=== PATIENT | female | born 1995 | race Caucasian/White ===

== ENCOUNTER 2016-06-02 01:11 | Emergency (ER) | payer OTHER ==
[~2016-06-02] VITALS: Ht 157.5 cm; Wt 89.8 kg
[~2016-06-02 01:11] MED LIST: FERROUS SULFAT325 M1 PO; FOLATE1 MG PO; PRENATAL VITAMI1 T10 PO; PRENATAL1 TA1 PO
[2016-06-02 01:20] VITALS: BP 135/82
--- NOTE | 2016-06-02 01:31 | NUR ---
PT TAKEN TO BED 5
--- NOTE | 2016-06-02 01:32 | NUR ---
PATIENT PRESENTS TO ED WITH LOWER BACK AND LOWER AB PAIN X 1 DAY . PT DENIES V/D; SKIN IS PINK/WARM/DRY; AAOX4 WITH EVEN AND STEADY GAIT; LUNGS CLEAR BL; HR EVEN AND REGULAR; PT DENIES ANY FEVER, CP, SOB, OR COUGH AT THIS TIME; PATIENT STATES PAIN OF 5/10 AT THIS TIME; VSS; PATIENT POSITIONED FOR COMFORT; HOB ELEVATED; BEDRAILS UP X2; BED DOWN. ER MD MADE AWARE OF PT STATUS.
--- NOTE | 2016-06-02 01:35 | NUR ---
Dr. Mills evaluating patient at bedside.
[2016-06-02] MEDS ORDERED: ACETAMINOPHEN EXTRA STRENGTH 500 MG TAB PO ONE (01:40)
[2016-06-02] MEDS ORDERED: ONDANSETRON 4 MG ODT PO ONE (02:30)
--- NOTE | 2016-06-02 02:40 | NUR ---
Lashawn whatley in ED - 06/02/16 at 0257 by PAZ GAVE REPORT TO AMADEO AT [facility], TRANSFER OF CARE. [facility] WILL PICKUP PT AND BRING HER BACK TO [facility] [place] WITHIN THE HOUR
--- NOTE | 2016-06-02 03:21 | NUR ---
PT MOVED TO OF
[2016-06-02 04:00] VITALS: BP 135/82
[2016-09-03] MEDS ORDERED: HUMULIN N100 U/M1 SC ×2 (23:27)
[2016-09-03] MEDS ORDERED: HUMULIN R U-100 U/ML IJ ×2 (23:27)
== END 2016-06-02 04:01 | disposition home or self-care (01) ==
LOC: MED 01:11
DX: O20.0 Threatened abortion (principal); O24.911 Unspecified diabetes mellitus in pregnancy, first trimester; Z3A.10 10 weeks gestation of pregnancy
CPT/HCPCS: 36415; 76801; 81001; 84702; 86900; 86901; 99285; Q0092; S0119

== ENCOUNTER 2016-06-05 00:59 | Emergency (ER) | payer OTHER ==
[~2016-06-05] VITALS: Ht 157.5 cm; Wt 89.8 kg
[2016-06-05 01:16] VITALS: BP 120/87
--- NOTE | 2016-06-05 03:05 | NUR ---
PATIENT TO BED 7.
--- NOTE | 2016-06-05 03:21 | NUR ---
21Y/F PT PRESENTS TO ED WITH C/O HIVES SINCE 1999 TODAY. DENIES PAIN AND N/V/D AT THIS TIME. NO MED HX. IUP 11 WKS; SKIN IS PINK/WARM/DRY; AAOX4 WITH EVEN AND STEADY GAIT; LUNGS CLEAR BL; HR EVEN AND REGULAR; PT DENIES ANY FEVER, CP, SOB, OR COUGH AT THIS TIME; PATIENT STATES PAIN OF 0/10 AT THIS TIME; VSS; PATIENT POSITIONED FOR COMFORT; HOB ELEVATED; BEDRAILS UP X2; BED DOWN. ER MD MADE AWARE OF PT STATUS.
--- NOTE | 2016-06-05 03:57 | NUR ---
Patient being evaluated by physician at bedside.
--- NOTE | 2016-06-05 04:04 | NUR ---
Patient discharged with v/s stable. Written and verbal after care instructions given and explained. Patient alert, oriented and verbalized understanding of instructions. Ambulatory with steady gait. All questions addressed prior to discharge. ID band removed. Patient advised to follow up with PMD. Rx of BENEDRYL ALLERGY given. Patient educated on indication of medication including possible reaction and side effects. Opportunity to ask questions provided and answered.
[2016-06-05 04:05] VITALS: BP 116/79
[2016-09-03] MEDS ORDERED: HUMULIN R U-100 U/ML IJ ×2 (23:27)
[2016-09-03] MEDS ORDERED: HUMULIN N100 U/M1 SC ×2 (23:27)
== END 2016-06-05 04:04 | disposition home or self-care (01) ==
LOC: MED 00:59
DX: O26.891 Other specified pregnancy related conditions, first trimester (principal); O24.911 Unspecified diabetes mellitus in pregnancy, first trimester; L50.9 Urticaria, unspecified

== ENCOUNTER 2016-09-03 22:00 | Observation (INO) | payer OTHER ==
[~2016-09-03] VITALS: Ht 157.5 cm; Wt 90.7 kg
[~2016-09-03 22:00] MED LIST changes: +FERR-193 PO; -FERROUS SULFAT325 M1 PO; -FOLATE1 MG PO; +FOLI1TAB19 PO; +PREN-385 PO; -PRENATAL VITAMI1 T10 PO; -PRENATAL1 TA1 PO
[2016-09-03] MEDS ORDERED: INSU100S10 SC ×2 (23:27)
[2016-09-03] MEDS ORDERED: INSU100S5 IJ ×2 (23:27)
== END 2016-09-04 00:50 | disposition home or self-care (01) ==
LOC: MLD 22:00
PROVIDERS: ADMIT Obstetrics & Gynecology; ATTEND Obstetrics & Gynecology
DX: O26.892 Other specified pregnancy related conditions, second trimester (principal); M54.9 Dorsalgia, unspecified; Z3A.00 Weeks of gestation of pregnancy not specified
CPT/HCPCS: 59025; 76805; G0378; Q0092